=== PATIENT | female | born 1965 | race Caucasian/White ===

== ENCOUNTER → 2017-06-07 15:22 | Outpatient (CLI) | payer BC | END | disposition home or self-care (01) | LOC: D.CT 15:22 | DX: I63.9 Cerebral infarction, unspecified (principal) ==

== ENCOUNTER → 2017-06-10 16:28 | Outpatient (CLI) | payer BC | END | disposition home or self-care (01) | LOC: D.MRI 16:28 | DX: I63.9 Cerebral infarction, unspecified (principal) ==

== ENCOUNTER → 2017-07-02 13:16 | Outpatient (CLI) | payer BC | END | disposition home or self-care (01) | LOC: D.RAD 13:00 | DX: R47.9 Unspecified speech disturbances (principal); I62.9 Nontraumatic intracranial hemorrhage, unspecified ==

== ENCOUNTER → 2017-07-05 13:32 | Outpatient (CLI) | payer BC ==
--- NOTE | 2017-07-09 14:14 | EC ---
PATIENT:RAFFAELE RED DATE OF SERVICE: 07/05/17 SEX: F MEDICAL RECORD: [id number] DATE OF : 67 LOCATION:[facility] AGE OF PATIENT: 52 ADMISSION DATE: 07/05/17 REFERRING PHYSICIAN: INTERPRETING PHYSICIAN: ROMELIA SAMUELS MD ECHOCARDIOGRAM REPORT ECHO CHARGES 4 ECHO COMPLETE CLINICAL DIAGNOSIS: CEREBRAL INFARCTION ECHOCARDIOGRAPHIC MEASUREMENTS (adult normal given) AC root (d.<3.7cm) 2.9 cm LV Septum d (<1.2 cm> 1.1 cm Valve Excursion 1.8 cm LV Septum (systole) 1.6 cm Left Atria (s.<4.0cm> 3.4 cm LVPW d(<1.2cm) 1.0 cm RV (d.<2.3cm) 2.1 cm LVPW (sytole) 1.6 cm LV diastole(<5.6CM) 4.2 cm MV E-F(>70mm/sec) cm LV systole 2.3 cm LVOT Diameter 1.7 cm MV exc.(>10mm) cm Est.ejection fraction (50-75%) % Pericardial Effusion N DOPPLER: LVIT cm/sec A 78.0 cm/sec E 94.0 cm/sec LA cm/sec RVSP 31.0 mmHg LVOT 117 cm/sec AOP1/2T m/s Asc. Ao 139 cm/sec RVOT 62.0 cm/sec RA cm/sec PA 78.0 cm/sec AV Gradient Peak 7.8 mmHg AV Mean 3.5 mmHg AV Area 2.0 cm MV Gradient Peak 5.7 mmHg MV Mean 2.0 mmHg MV Area cm COMMENTS: ECHO WITH BUBBLE STUDY Fundraising Assistant: Allyn JOHNSONOE E Commerce Marketing Analyst: 1 Dr. Samuels TAPE# PACS DATE OF SERVICE: 07/05/2017 FINDINGS: 1. Left ventricle chamber size is within normal limits. Left ventricular systolic function is normal. Overall ejection fraction estimated at 60%. 2. Left atrium, right atrium, and right ventricular chamber sizes are within normal limits. 3. Valvular structures have normal structure and motion. 4. Doppler interrogation reveals only trace tricuspid regurgitation. No other valvular insufficiency or stenosis. ECHOCARDIOGRAM REPORT [id number] RAFFAELE RED 5. No evidence of pericardial effusion or left ventricular thrombus. 6. Bubble study was performed. No evidence of left to right or right to left shunt. TRANSINT:[id number] Voice Confirmation ID: [id number] DOCUMENT ID: [id number] ROMELIA SAMUELS MD at 1414 CC: [id number] DICTATION DATE: 07/05/17 1645 DOCKING SAW OPERATOR: 07/05/171941 DEP CLI 07/05/17 [facility] [address] [place] [address]
== END | disposition home or self-care (01) ==
LOC: D.ECHO 13:30
DX: I63.019 Cerebral infarction due to thrombosis of unspecified vertebral artery (principal)

== ENCOUNTER → 2017-08-30 15:31 | Outpatient (CLI) | payer BC ==
[2017-09-01 10:17] LABS: ANA REFLEX - DIRECT Negative (Negative)
[2017-09-02 11:18] LABS: LUPUS - INTERPRETATION Comment: (()); LUPUS - THROMBIN TIME 20.8 sec (0.0-23.0); LUPUS - dRVVT 35.2 sec (0.0-47.0); PTT-LA 30.6 sec (0.0-51.9)
== END | disposition home or self-care (01) ==
LOC: D.LAB 15:31
PROVIDERS: Internal Medicine Cardiovascular Disease
DX: G45.9 Transient cerebral ischemic attack, unspecified (principal); R00.2 Palpitations; R07.9 Chest pain, unspecified

== ENCOUNTER 2017-09-06 14:25 | Emergency (ER) | payer BC ==
[2017-09-06 15:04] LABS: BASOPHILS 0.2 % (0-2); EOSINOPHILS 2.6 % (0-7); HEMATOCRIT 41.7 % (36.0-48.0); HEMOGLOBIN 13.6 g/dL (12-16); IMMATURE GRANULOCYTES 0.2 % (0-5); LYMPHOCYTES 21.8 % (15-50); MCH 31.6 pg (26.0-34.0); MCHC 32.6 g/dL (31.0-37.0); MCV 96.8 fL (80.0-100.0); MEAN PLATELET VOLUME 10.9 fL (7.4-10.4); MONOCYTES 6.4 % (2-11); NEUTROPHILS 68.8 % (40-80); PLATELET COUNT 237 10x3/uL (130-400); RBC 4.31 10x6/uL (4.00-5.40); RDW 13.4 % (11.5-14.5); WBC 9.3 10x3/uL (4.8-10.8)
[2017-09-06 15:23] LABS: ALBUMIN 3.8 g/dL (3.4-5.0); ALKALINE PHOSPHATASE 121 U/L (46-116); ALT (SGPT) 20 U/L (10-68); BILIRUBIN - TOTAL 0.27 mg/dL (0.2-1.3); CALC OSMOLALITY 286 mosm/kg (275-300); CARBON DIOXIDE 28.8 mmol/L (21.0-32.0); CHLORIDE - SERUM 106 mmol/L (98-107); CREATININE - SERUM 0.8 mg/dL (0.6-1.3); GLUCOSE 108 mg/dL (74-106); POTASSIUM - SERUM 4.2 mmol/L (3.5-5.1); PROTEIN - SERUM 7.6 g/dL (6.4-8.2); SODIUM 143 mmol/L (136-145); UREA NITROGEN 15 mg/dL (7-18); eGFR NON AFRICAN AMERICAN 80 mL/min (90-120)
[2017-09-06 15:25] LABS: APTT 25.4 SECONDS (22.8-39.4); INR 0.89 (0.85-1.17); PROTIME 11.7 SECONDS (11.6-15.0)
== END 2017-09-06 16:10 | disposition home or self-care (01) ==
LOC: D.ER 14:25
PROVIDERS: Family Medicine
DX: G45.9 Transient cerebral ischemic attack, unspecified (principal); I10 Essential (primary) hypertension

== ENCOUNTER → 2017-10-05 14:30 | Outpatient (CLI) | payer BC | END | disposition home or self-care (01) | LOC: D.MRI 14:30 | DX: I63.50 Cerebral infarction due to unspecified occlusion or stenosis of unspecified cerebral artery (principal) ==

== ENCOUNTER → 2017-11-17 14:03 | Outpatient (CLI) | payer BC | END | disposition home or self-care (01) | LOC: D.MRI 14:03 | DX: I63.50 Cerebral infarction due to unspecified occlusion or stenosis of unspecified cerebral artery (principal) ==

== ENCOUNTER 2018-06-13 08:52 | Emergency (ER) | payer BC ==
[~2018-06-13] VITALS: Ht 157.5 cm; Wt 72.7 kg
[2018-06-13 09:08] VITALS: Ht 157.5 cm; Wt 72.7 kg
[2018-06-13] MEDS ORDERED: LIPITOR10 MG (09:09)
[2018-06-13] MEDS ORDERED: CELEXA20 MG (09:09)
[2018-06-13] MEDS ORDERED: BAYER CHEWABLE81 MG (09:09)
[2018-06-13] MEDS ORDERED: ATIVAN0.5 MG (09:09)
[2018-06-13] MEDS ORDERED: OMEPRAZOLE40 MG (09:09)
[2018-06-13] MEDS ORDERED: CHOLESTEROL MEDICATI (09:10)
[2018-06-13 09:43] LABS: ALBUMIN 4.1 g/dL (3.4-5.0); ANION GAP 11.2 mmol/L (8-16); BASOPHILS 0.3 % (0-2); BILIRUBIN - TOTAL 0.4 mg/dL (0.2-1.3); CARBON DIOXIDE 29.1 mmol/L (21.0-32.0); EOSINOPHILS 2.8 % (0-7); HEMATOCRIT 43.8 % (36.0-48.0); HEMOGLOBIN 14.7 g/dL (12-16); IMMATURE GRANULOCYTES 0.2 % (0-5); LYMPHOCYTES 30.3 % (15-50); MCH 31.7 pg (26.0-34.0); MCHC 33.6 g/dL (31.0-37.0); MCV 94.4 fL (80.0-100.0); MEAN PLATELET VOLUME 11.5 fL (7.4-10.4); MONOCYTES 7.3 % (2-11); NEUTROPHILS 59.1 % (40-80); PLATELET COUNT 244 10x3/uL (130-400); POTASSIUM - SERUM 4.3 mmol/L (3.5-5.1); PROTEIN - SERUM 8.1 g/dL (6.4-8.2); RBC 4.64 10x6/uL (4.00-5.40); RDW 13.3 % (11.5-14.5); WBC 6.3 10x3/uL (4.8-10.8)
[2018-06-13 09:49] LABS: APPEARANCE HAZY (CLEAR); BACTERIA MODERATE /hpf (NONE SEEN); BILIRUBIN NEGATIVE (NEGATIVE); COLOR YELLOW (YELLOW); EPITHELIAL CELLS 0-5 /hpf (0-5); GLUCOSE NEGATIVE (NEGATIVE); KETONE NEGATIVE (NEGATIVE); MUCUS <1+ /lpf (NONE SEEN); NITRITE NEGATIVE (NEGATIVE); PROTEIN NEGATIVE (NEGATIVE); UROBILINOGEN NORMAL (NORMAL)
[2018-06-13 09:50] LABS: RED CELLS - URINE RARE /hpf (0-5)
[2018-06-13] MEDS ORDERED: BACTRIM 400-801 TAB PO (11:55)
[2018-06-13] MEDS ORDERED: ZOFRAN ODT4 MG/UDTAB PO (11:57)
[2018-06-13 12:26] VITALS: BP 118/62
== END 2018-06-13 12:25 | disposition home or self-care (01) ==
LOC: D.ER 08:52
PROVIDERS: Family Medicine
DX: N39.0 Urinary tract infection, site not specified (principal); R20.2 Paresthesia of skin; I67.2 Cerebral atherosclerosis; Z86.73 Personal history of transient ischemic attack (TIA), and cerebral infarction without residual deficits; I10 Essential (primary) hypertension; R53.1 Weakness

== ENCOUNTER → 2018-09-07 14:09 | Outpatient (CLI) | payer BC ==
[2018-06-13 09:08] VITALS: BMI 29.3
[~2018-09-07 14:09] MED LIST: ATIVAN0.5 MG; BACTRIM 400-801 TAB PO; BAYER CHEWABLE81 MG; CELEXA20 MG; CHOLESTEROL MEDICATI; LIPITOR10 MG; OMEPRAZOLE40 MG; ZOFRAN ODT4 MG/UDTAB PO
== END | disposition home or self-care (01) ==
LOC: D.CT 14:09
DX: I63.50 Cerebral infarction due to unspecified occlusion or stenosis of unspecified cerebral artery (principal)

== ENCOUNTER → 2018-09-23 13:44 | Outpatient (CLI) | payer BC ==
[2018-06-13 09:08] VITALS: BMI 29.3
== END | disposition home or self-care (01) ==
LOC: D.MRI 13:30
DX: R93.0 Abnormal findings on diagnostic imaging of skull and head, not elsewhere classified (principal)

== ENCOUNTER 2019-05-10 08:00 | Outpatient (CLI) | payer BC ==
[2018-06-13 09:08] VITALS: BMI 29.3
== END 2019-05-10 08:30 | disposition home or self-care (01) ==
LOC: D.MAMMO 08:00
PROVIDERS: ATTEND Family Medicine
DX: Z12.31 Encounter for screening mammogram for malignant neoplasm of breast (principal)